=== PATIENT | female | born 1965 | race Caucasian/White ===

== ENCOUNTER 2021-03-18 10:28 | Emergency (ER) | payer SELFPAY ==
[~2021-03-18] VITALS: Ht 167.6 cm; Wt 72.6 kg
[2021-03-18] MEDS ORDERED: ONDANSETRON HCL 4 MG/2 ML VIAL ONE (12:29)
[2021-03-18] MEDS ORDERED: ONDANSETRON HCL 4 MG/2 ML VIAL IV ONE (12:30)
[2021-03-18 12:38] LABS: Hemoglobin 11.2 g/dL (12.2-16.2); White Blood Cell 6.2 10^3/uL (4.4-10.8)
[2021-03-18 12:40] LABS: Hematocrit 32.2 % (36.0-46.0); Mean Corpuscular Hemoglobin 32.5 pg (28.0-32.0); Mean Corpuscular Hgb Conc. 34.8 g/dL (32.0-36.0); Mean Corpuscular Volume 93.6 fL (80.0-100.0); Platelet Count (auto) 662 10^3/uL (140-450); Red Blood Cells 3.44 10^6/uL (4.0-5.20); Red Cell Distribution Width 15.6 % (11.8-14.3)
[2021-03-18 12:45] LABS: Albumin 3.2 g/dL (3.4-5.0); Calcium 8.2 mg/dL (8.5-10.1); Potassium 3.9 mmol/L (3.5-5.1)
[2021-03-18 12:51] LABS: BUN/Creatinine Ratio 29.5; Basophils % (manual) 0 (0.0-2.0); Bilirubin, Total 0.1 mg/dL (0.2-1.0); Blast Cells 0; Metamyelocytes % 0; Total Protein 6.9 g/dL (6.4-8.2)
[2021-03-18 13:06] LABS: Band Neutrophils % (manual) 3; Eosinophils % (manual) 2 (0-7); Lymphocytes % (manual) 57 (10.0-50.0); Monocytes % (manual) 8 (0-12); Myelocytes % 3; Promyelocytes % 1; Reactive Lymphocytes 2
[2021-03-18 20:45] VITALS: BP 122/81
== END 2021-03-18 23:42 | disposition home or self-care (01) ==
LOC: EDBD 10:28 → ER 10:28
DX: S09.8XXA Other specified injuries of head, initial encounter (principal); F10.129 Alcohol abuse with intoxication, unspecified; R51.9 Headache, unspecified; K21.9 Gastro-esophageal reflux disease without esophagitis; I10 Essential (primary) hypertension; I25.2 Old myocardial infarction; F17.210 Nicotine dependence, cigarettes, uncomplicated; Y90.8 Blood alcohol level of 240 mg/100 ml or more; Z86.73 Personal history of transient ischemic attack (TIA), and cerebral infarction without residual deficits; W18.09XA Striking against other object with subsequent fall, initial encounter; Y93.89 Activity, other specified; Y92.89 Other specified places as the place of occurrence of the external cause; Y99.8 Other external cause status
CPT/HCPCS: 36415; 70450; 80053; 80320; 84702; 85007; 85027; 93005; 96374; 99285; J2405

== ENCOUNTER 2021-03-19 14:52 | Emergency (ER) | payer MEDICAID, OTHER ==
[~2021-03-19] VITALS: Ht 165.1 cm; Wt 72.6 kg
[2021-03-19 14:52] VITALS: BP 126/73
== END 2021-03-19 15:08 | disposition left against medical advice (07) ==
LOC: EDBD 14:52 → ER 14:52
DX: M54.9 Dorsalgia, unspecified (principal); Z53.21 Procedure and treatment not carried out due to patient leaving prior to being seen by health care provider

== ENCOUNTER 2021-03-20 14:23 | Emergency (ER) | payer MEDICAID | END 2021-03-20 15:58 | disposition left against medical advice (07) | LOC: EDUNIT# 14:23 → ER 14:23 → EDBD 14:23 → ER 15:58 | DX: F41.9 Anxiety disorder, unspecified (principal); I10 Essential (primary) hypertension; I25.2 Old myocardial infarction; K21.9 Gastro-esophageal reflux disease without esophagitis; F17.210 Nicotine dependence, cigarettes, uncomplicated ==

== ENCOUNTER 2021-03-21 13:26 | Emergency (ER) | payer MEDICAID ==
[~2021-03-21] VITALS: Ht 170.2 cm; Wt 63.5 kg
[2021-03-21 13:32] VITALS: BP 124/77
== END 2021-03-21 16:32 | disposition left against medical advice (07) ==
LOC: ER 13:26 → EDBD 13:26 → ER 16:32
DX: M54.5 Low back pain (principal); Z53.21 Procedure and treatment not carried out due to patient leaving prior to being seen by health care provider